=== PATIENT | female | born 1950 | race Asian ===

== ENCOUNTER 2019-02-13 09:21 | Emergency (ER) | payer OTHER ==
[~2019-02-13] VITALS: Ht 167.6 cm; Wt 78.5 kg
[2019-02-13 09:37] VITALS: Ht 167.6 cm; Wt 78.5 kg
[2019-02-13 11:04] LABS: PLATELET COUNT 152 x10^3mcL (130-400); RED CELL DISTRIBUTION WIDTH 12.9 % (11.5-14.5)
[2019-02-13 11:10] LABS: CALCIUM 8.6 mg/dL (8.5-10.1); CARBON DIOXIDE 29.4 mmol/L (21-32); CHLORIDE SERUM 106 mmol/L (98-107); CREATININE SERUM 0.7 mg/dL (0.6-1.0); GFR1 > 60 mL/min; GLUCOSE SERUM 91 mg/dL (74-106); POTASSIUM SERUM 3.5 mmol/L (3.5-5.1); SODIUM SERUM 143 mmol/L (136-145)
[2019-02-13 11:14] LABS: ALBUMIN 3.6 g/dL (3.4-5.0); ALKALINE PHOSPHATASE 98 U/L (46-116); ALT/SGPT 23 U/L (14-59); AST/SGOT 16 U/L (15-37); BILIRUBIN TOTAL 0.7 mg/dL (0.20-1.00); TOTAL PROTEIN, SERUM 7.5 g/dL (6.4-8.2)
[2019-02-13 11:21] LABS: C REACTIVE PROTEIN 0.4 mg/dL (<=0.9)
[2019-02-13 12:36] LABS: ERYTHROCYTE SED RATE 13 mm/hr (0-30)
[2019-02-13 13:40] VITALS: BP 145/61
== END 2019-02-13 13:40 | disposition home or self-care (01) ==
LOC: ED 09:21
PROVIDERS: Emergency Medicine
DX: R51 Headache (principal); R20.2 Paresthesia of skin; I10 Essential (primary) hypertension
CPT/HCPCS: J1885; J2765

== ENCOUNTER 2019-02-17 08:42 | Emergency (ER) | payer OTHER ==
[~2019-02-17] VITALS: Ht 170.2 cm; Wt 60.8 kg
[2019-02-17 08:43] VITALS: Ht 170.2 cm; Wt 60.8 kg
[2019-02-17 12:40] VITALS: BP 149/86
== END 2019-02-17 12:40 | disposition home or self-care (01) ==
LOC: ED 08:42
DX: M48.02 Spinal stenosis, cervical region (principal); M50.321 Other cervical disc degeneration at C4-C5 level; M50.322 Other cervical disc degeneration at C5-C6 level; R51 Headache; Z98.890 Other specified postprocedural states
CPT/HCPCS: J1100; J1885

== ENCOUNTER 2020-05-10 22:14 | Emergency (ER) | payer OTHER ==
[~2020-05-10] VITALS: Ht 165.1 cm; Wt 65.3 kg
[2020-05-10 22:23] VITALS: Ht 165.1 cm; Wt 65.3 kg
[2020-05-10 23:55] LABS: BASOPHIL % 0.5 % (0-2); RED CELL DISTRIBUTION WIDTH 12.9 % (11.5-14.5)
[2020-05-10 23:59] LABS: PLATELET COUNT 128 x10^3mcL (130-400)
[2020-05-11 00:02] LABS: CALCIUM 8.3 mg/dL (8.5-10.1); CARBON DIOXIDE 28.9 mmol/L (21-32); CHLORIDE SERUM 106 mmol/L (98-107); CREATININE SERUM 0.9 mg/dL (0.6-1.0); GLUCOSE SERUM 86 mg/dL (74-106); POTASSIUM SERUM 3.7 mmol/L (3.5-5.1); SODIUM SERUM 142 mmol/L (136-145)
[2020-05-11 00:06] LABS: ALKALINE PHOSPHATASE 81 U/L (46-116); ALT/SGPT 20 U/L (14-59); AST/SGOT 19 U/L (15-37); BILIRUBIN TOTAL 0.4 mg/dL (0.20-1.00); TOTAL PROTEIN, SERUM 6.3 g/dL (6.4-8.2)
[2020-05-11 00:07] LABS: ALBUMIN 3.3 g/dL (3.4-5.0)
[2020-05-11 01:03] VITALS: BP 138/76
== END 2020-05-11 00:05 | disposition left against medical advice (07) ==
LOC: ED 22:14
PROVIDERS: Emergency Medicine
DX: G45.9 Transient cerebral ischemic attack, unspecified (principal); R42 Dizziness and giddiness; I10 Essential (primary) hypertension; Z98.890 Other specified postprocedural states
CPT/HCPCS: 36415